=== PATIENT | male | born 2000 | race Hispanic/Latino ===

== ENCOUNTER 2019-01-27 21:01 | Emergency (ER) | payer OTHER ==
[~2019-01-27] VITALS: Ht 180.3 cm; Wt 158.8 kg
[2019-01-27] MEDS ORDERED: SODIUM CHLORIDE 0.9% 1000ML 1,000 ML IV STA ×2 (21:15→21:19)
[2019-01-27] MEDS ORDERED: FAMOTIDINE 20 MG/2 ML VIAL IV ONE (21:15)
[2019-01-27] MEDS ORDERED: ONDANSETRON HCL INJ 2MG/ML 2ML 2 MG/ML VIAL IV ONE (21:15)
== END 2019-01-27 22:50 | disposition home or self-care (01) ==
LOC: FSED 21:01
DX: R11.2 Nausea with vomiting, unspecified (principal); R19.7 Diarrhea, unspecified; R10.9 Unspecified abdominal pain; A08.4 Viral intestinal infection, unspecified; E86.0 Dehydration
CPT/HCPCS: 80053; 81003; 85025; 99284; J2405; J7030

== ENCOUNTER → 2019-05-25 | Outpatient (CLI) | payer OTHER, BC ==
--- NOTE | 2019-05-25 08:57 | Diagnostic Imaging Report ---
Chest, 2 views, 05/25/2019. History: Intercostal pain. Comparison: None available. Findings: The cardiomediastinal silhouette and pulmonary vasculature are within normal limits. The lungs are clear without evidence of consolidation or pleural effusion. There are no acute osseous or soft tissue abnormalities. Impression: No acute cardiopulmonary abnormality. Signed by: Pipe Seth on 05/25/2019 8:53 AM
--- NOTE | 2019-05-25 10:57 | Diagnostic Imaging Report ---
Abdominal ultrasound. History: Generalized abdominal pain. Comparison: None available. Discussion: Transverse and longitudinal images of the abdomen were obtained demonstrating a liver of increased size and echogenicity measuring 18 cm in length. The portal vein is patent with hepatopetal flow and is within normal limits measuring 10 mm in diameter. The biliary tree is within normal limits with the common bile duct measuring 3 mm in diameter. The gallbladder is normal without evidence of stones, wall thickening, or pericholecystic fluid. The sonographic Bagley's sign was negative. The kidneys are normal in size and echogenicity bilaterally without evidence of hydronephrosis, stones, or mass. The right kidney measures 12.6 cm and the left kidney measures 13.1 cm in length. The spleen is normal in size and appearance measuring 12.9 cm in length. The pancreatic head and body are visualized and are normal in appearance. The abdominal aorta and IVC are within normal limits. There is no evidence of free fluid. IMPRESSION: Hepatomegaly with diffuse fatty infiltration of the liver. Otherwise unremarkable abdominal ultrasound. No evidence of cholelithiasis. Signed by: Pipe Seth on 05/25/2019 10:54 AM
== END ==
LOC: RAD 07:35
PROVIDERS: ATTEND Student in an Organized Health Care Education/Training Program
DX: R07.82 Intercostal pain (principal); R10.84 Generalized abdominal pain
CPT/HCPCS: 71046; 76700

== ENCOUNTER → 2019-09-17 | Outpatient (CLI) | payer OTHER, BC ==
--- NOTE | 2019-09-17 13:36 | Diagnostic Imaging Report ---
HISTORY : Liver disease COMPARISON : 05/25/2019 COMMENT : Right upper quadrant ultrasound examination of the abdomen was performed. The liver is enlarged measuring 18 cm in length and increased in echo-texture without evidence of a focal mass. The gallbladder contains shadowing echogenic gallstones. No pericholecystic fluid or gallbladder wall thickening. The biliary tract is within normal limits with the common bile duct measuring 2 mm in maximum diameter. The visualized pancreas is poorly visualized secondary to overlying bowel gas. The right kidney measures 11.8 cm in length. There is no evidence of cysts, masses, stones or hydronephrosis. The portal vein measures to a maximum of 0.8 cm in diameter. There is no ascites or pleural effusion. The visualized inferior vena cava, hepatic veins and abdominal aorta are within normal limits. IMPRESSION : Mild hepatomegaly with hepatic steatosis. Cholelithiasis without ultrasonographic evidence of acute cholecystitis. Signed by: Dario Ojeda MD on 09/17/2019 1:32 PM
--- NOTE | 2019-09-17 14:38 | Diagnostic Imaging Report ---
Limited nonvascular ultrasound of the bilateral axilla. Clinical indication: Axillary abscess Comparison: None Findings: Limited grayscale and color Doppler ultrasound of the bilateral axillary regions was obtained. No soft tissue abnormalities are identified. No abscesses are seen in either axilla. Impression: No evidence of axillary abscess bilaterally. Signed by: Dario Ojeda MD on 09/17/2019 2:35 PM
== END ==
LOC: US 09:44
PROVIDERS: ATTEND Student in an Organized Health Care Education/Training Program
DX: K76.9 Liver disease, unspecified (principal); L02.91 Cutaneous abscess, unspecified
CPT/HCPCS: 76705; 76882